=== PATIENT | male | born 1980 | race Caucasian/White ===

== ENCOUNTER 2018-04-04 10:05 | Inpatient (IN) ==
[2018-04-04] MEDS ORDERED: FAMOTIDINE 20 MG TABLET PO ONE (10:20)
[2018-04-04] MEDS ORDERED: DIAZEPAM 5 MG TABLET PO ONE (10:20)
[2018-04-04] MEDS ORDERED: FAMOTIDINE 20 MG TABLET ONE (10:50)
[2018-04-04] MEDS ORDERED: DIAZEPAM 5 MG TABLET ONE (10:50)
[2018-04-04] MEDS: LACTATED RINGERS 1,000 ML IV SCH (11:13)
[2018-04-04] MEDS ORDERED: LIDOCAINE 1%/EPI INJ 20 ML VIAL ONE (12:13)
[2018-04-04] MEDS ORDERED: MORPHINE 10 MG/1 ML VIAL IM PRN (13:35)
[2018-04-04] MEDS ORDERED: diphenhydrAMINE CAP 25 MG CAPSULE PO PRN (13:36)
[2018-04-04] MEDS ORDERED: oxyCODONE/ACETAMINOPHEN 5-325 MG TABLET PO PRN (13:36)
[2018-04-04] MEDS ORDERED: ONDANSETRON 4 MG/2 ML VIAL IM PRN (13:36)
[2018-04-04] MEDS ORDERED: PROPOFOL 200 MG/20 ML VIAL IV ONE (13:43)
[2018-04-04] MEDS ORDERED: SEVOFLURANE 1 UNIT/15 MINUTE INH ONE (13:43)
[2018-04-04] MEDS ORDERED: MIDAZOLAM 2 MG/2 ML VIAL ONE (13:43)
[2018-04-04] MEDS ORDERED: KETOROLAC 30 MG/1 ML VIAL ONE (13:44)
[2018-04-04] MEDS ORDERED: SUCCINYLCHOLINE 200 MG/10 ML VIAL ONE (13:44)
[2018-04-04] MEDS ORDERED: ROCURONIUM 100 MG/10 ML VIAL IV ONE (13:44)
[2018-04-04] MEDS ORDERED: fentaNYL 100 MCG/2 ML VIAL ONE (13:44)
[2018-04-04] MEDS: CLINDAMYCIN INJ 600 MG in PREMIX 1 EACH IV SCH ×2 (16:53→21:50)
[2018-04-04] MEDS ORDERED: DEXAMETHASONE 10 MG/1 ML VIAL IV ONE ×2 (18:00→22:00)
[2018-04-05] MEDS: CLINDAMYCIN INJ 600 MG in PREMIX 1 EACH IV SCH ×3 (01:58→14:19)
[2018-04-05] MEDS ORDERED: DEXAMETHASONE 4 MG/1 ML VIAL IV ONE ×2 (04:00→10:00)
[2018-04-05 04:56] LABS: Basophils % 0.3 % (0.0-0.8); Eosinophils % 0.3 % (0.00-10.9); Hematocrit 40.4 VOL% (42.0-52.0); Hemoglobin 13.4 GM/DL (14.0-18.0); Immature Granulocytes % 0.8 %; Immature Granulocytes Absolute 0.07 #; Lymphocytes # 0.7 10*3/uL (1.4-4.0); Lymphocytes % 7.8 % (21.2-54.2); Mean Corpuscular HGB Conc 33.2 GM/DL (32-36); Mean Corpuscular Hemoglobin 29 PG (27-34); Mean Corpuscular Volume 86.1 FL (87-102); Mean Platelet Volume 9.5 FL (9.6-12.0); Monocytes # 0.1 10*3/uL (0.11-0.8); Monocytes % 0.8 % (1.7-12.7); Platelet Count 265 T/CUMM (130-400); Red Blood Count 4.69 MC/CUMM (3.8-5.5); Red Cell Distribution Width 13.5 % (9.3-17.3); White Blood Count 8.9 T/CUMM (4-12)
[2018-04-05 12:13] VITALS: BP 119/73
[2018-04-05] MEDS: LACTATED RINGERS 1,000 ML IV SCH (14:20)
[2018-04-05] MEDS ORDERED: CLINDAMYCIN 300 MG CAPSULE PO SCH (18:00)
== END 2018-04-05 16:23 | disposition home or self-care (01) | DRG 603 ==
LOC: N.SDSINP 10:05 → N.OR 10:05 → N.SDSINP 10:07 → EDSTATUS 12:00 → N.3E 14:29 → EDSDCBED 14:29 → N.OR 04-05 16:23 → UNDODEPSDC 04-08 11:33
PROVIDERS: ADMIT Dentist Oral and Maxillofacial Surgery; ATTEND Dentist Oral and Maxillofacial Surgery